=== PATIENT | female | born 1970 | race Caucasian/White ===

== ENCOUNTER → 2018-11-11 | Outpatient (CLI) | payer OTHER ==
[~2018-11-11] MED LIST: AMLO5TAB10 PO; BISO1TAB4 PO; CRAN500C6 PO; DIPH50CA PO; GLUC1TAB71 PO; LISI-130 PO; MULT-245 PO; OMEP20CA10 PO; TRIA1CAP3 PO
--- NOTE | 2018-11-11 12:29 | KCIC ---
PA and lateral views of the chest. Comparison: 09/28/2015. Indication: Acute bronchitis, cough for 10 days with left-sided chest pain shortness of and low-grade fever Findings: The heart size is normal. No pneumothorax or effusion. No air space or interstitial disease. The bony structures are intact. Impression: 1. No acute cardiopulmonary process. Electronically signed by: Bladimir Jacobson MD (11/11/2018 12:26 PM) [id number]
== END | disposition home or self-care (01) ==
LOC: KCIC 10:24
PROVIDERS: ATTEND Internal Medicine
DX: J20.9 Acute bronchitis, unspecified (principal); R05 Cough; R50.9 Fever, unspecified; R07.89 Other chest pain
CPT/HCPCS: 71046